=== PATIENT | male | born 1980 | race Caucasian/White ===

== ENCOUNTER 2022-08-13 07:46 | Emergency (ER) | payer BC ==
[2022-08-13] MEDS ORDERED: Ciprofloxacin 0.3% Ophth Soln 2.5 ML Bottle ONE (09:00)
[2022-08-13] MEDS ORDERED: Distilled Water Ophth Irrig Soln 120 ML Bottle EYELF ONE (09:00)
[2022-08-13] MEDS ORDERED: Tetracaine HCl/PF 0.5% 4 ML Bottle EYELF ONE (09:25)
== END 2022-08-13 09:20 | disposition home or self-care (01) ==
LOC: LB.ED 07:46
DX: T15.02XA Foreign body in cornea, left eye, initial encounter (principal)
CPT/HCPCS: 65220; 99282; 99283-25; A9270-GY